=== PATIENT | female | born 2000 | race Caucasian/White ===

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

== ENCOUNTER → 2019-03-11 | Outpatient (CLI) | payer OTHER, SELFPAY ==
[2019-01-18 11:09] VITALS: BMI 18.5
[2019-03-11 12:56] LABS: hCG Titer Quant., Serum < 1 mIU/mL (1-3)
== END | disposition home or self-care (01) ==
PROVIDERS: Family Provider Family Medicine; PCP Family Medicine; Visit Provider Family Medicine
DX: N91.2 Amenorrhea, unspecified (principal)
CPT/HCPCS: 36415; 84702

== ENCOUNTER → 2020-03-29 13:27 | Outpatient (CLI) | payer OTHER, SELFPAY ==
[2019-11-05 09:19] VITALS: BMI 18.3
[2020-03-29 15:34] LABS: Amphetamine Urine VISTA NEGATIVE (<1000 ng/mL); Barbiturate Urine VISTA NEGATIVE (< 200 ng/mL); Benzodiazepine Urine VISTA NEGATIVE (< 200 ng/mL); Cocaine Urine VISTA NEGATIVE (< 300 ng/mL); Ecstacy Urine VISTA NEGATIVE (< 500 ng/mL); Methadone Urine VISTA NEGATIVE (< 300 ng/mL); PCP Urine VISTA NEGATIVE (< 25 ng/mL); THC Urine VISTA NEGATIVE (< 50 ng/mL); Vista UDS pH Range 6
== END ==
PROVIDERS: PCP Family Medicine; Visit Provider Family Medicine
DX: Z01.89 Encounter for other specified special examinations (principal)
CPT/HCPCS: 80307

== ENCOUNTER → 2020-06-03 | Outpatient (CLI) | payer OTHER, SELFPAY ==
[2020-06-03 10:43] VITALS: BMI 18.3
== END | disposition home or self-care (01) ==
PROVIDERS: PCP Family Medicine; Referring Provider Obstetrics & Gynecology; Visit Provider Obstetrics & Gynecology
DX: N89.8 Other specified noninflammatory disorders of vagina (principal)
CPT/HCPCS: 87070; 87205

== ENCOUNTER → 2020-11-19 08:42 | Outpatient (CLI) | payer OTHER, SELFPAY ==
[2020-07-05 10:02] VITALS: BMI 18.7
[2020-11-19 12:17] LABS: Absolute Lymphocyte Count 2.21 X10^3/uL (0.83-4.51); Absolute Neutrophil Count 3.6 X10^3/uL (2.0-7.7); Basophil# 0.05 X10^3/uL; Basophil% 0.8 % (0-1); Eosinophil# 0.13 X10^3/uL; Hemoglobin 13.4 g/dL (12.0-15.0); Lymphocyte # 2.21 X10^3/ul (4.0); Lymphocyte % 33.6 % (19-41); Mean Corp Hgb Conc 32.7 g/dL (32-36); Mean Corpuscular Hgb 31.2 pg (27.0-32.0); Mean Corpuscular Volume 95.6 fL (81-99); Mean Platelet Vol. 9.9 fl (6.2-12.0); Monocyte# 0.56 X10^3/uL; Monocyte% 8.5 % (0-10); NRBC Flagged by Analyzer 0 % (0-5); Neutrophil # 3.62 X10^3/uL (2.7-7.7); Neutrophil % 54.9 % (47-70); Platelet Count 218 K/mm3 (150-450); RBC Distribution Width CV 11.8 % (11.6-14.6); RBC Distribution Width SD 40.7 fl (35.1-43.9); Red Blood Count 4.29 M/mm3 (4.2-5.4); White Blood Count 6.6 K/mm3 (4.4-11.0)
[2020-11-19 12:29] LABS: Vitamin D,25 Hydroxy 36.1 ng/mL
[2020-11-19 12:34] LABS: ALB/GLOB Ratio 1.2 RATIO (0.9-2.4); AST(SGOT) 13 U/L (15-37); Alanine Aminotransfer ALT/SGPT 21 U/L (13-56); Albumin, Serum 3.7 g/dL (3.2-5.0); Alkaline Phosphatase 42 U/L (45-117); Anion Gap 4 (5-15); BUN 8 mg/dL (7-18); BUN/Creat Ratio 10.7 RATIO (10-20); Calcium,Total 9.2 mg/dL (8.5-10.1); Chloride 109 mmol/L (98-107); Creatinine, Serum 0.75 mg/dL (0.55-1.02); EST Glomerular Filtration Rate 103 mL/min (>60); Est Glom Filt Rate - Afr Amer 125 mL/min (>60); Ferritin 35 ng/mL (8-252); Free T3 2.8 pg/mL (2.18-3.98); Globulin 3.1 g/dL (2.2-4.2); Glucose 72 mg/dL (74-106); Iron 145 ug/dL (50-170); Potassium 3.6 mmol/L (3.5-5.1); Protein, Total 6.8 g/dL (6.4-8.2); Sodium Level 140 mmol/L (136-145); T4 Free Direct 1.14 ng/dL (0.76-1.46); Thyroid Stim Hormone (TSH) 2.04 uIU/mL (0.358-3.74)
== END ==
PROVIDERS: PCP Family Medicine; Visit Provider Family Medicine
DX: R53.83 Other fatigue (principal); Z51.81 Encounter for therapeutic drug level monitoring; E55.9 Vitamin D deficiency, unspecified; D64.9 Anemia, unspecified
CPT/HCPCS: 36415; 80053; 82306; 82728; 83540; 84439; 84443; 84481; 85025

== ENCOUNTER → 2020-12-30 | Outpatient (CLI) | payer OTHER, SELFPAY ==
[2020-12-30 11:41] VITALS: BMI 19.5
[2021-01-03 06:06] LABS: Chlamydia By Nucleic Acid AMP Negative (Negative)
[2021-01-03 09:29] LABS: Gonococcus By Nucleic Acid AMP Negative (Negative)
[2021-01-04 16:48] LABS: HPV Reflexed? NOT INDICATED
== END | disposition home or self-care (01) ==
LOC: LABSPEC 16:28
PROVIDERS: PCP Family Medicine; Referring Provider Obstetrics & Gynecology; Visit Provider Obstetrics & Gynecology
DX: Z12.4 Encounter for screening for malignant neoplasm of cervix (principal)
CPT/HCPCS: 87491; 87591; 88175; G0145

== ENCOUNTER 2021-10-07 22:11 | Emergency (ER) | payer OTHER, SELFPAY ==
[2021-10-07 22:12] VITALS: BP 105/74; PULSE 66; RESP 14; TEMP 36.7; O2SAT 99; BMI 18.1
[2021-10-07] MEDS: Tetracaine 0.5% Ophthalmic Bottle 2 DRP RIGHT EYE (22:42)
[2021-10-07 22:43] VITALS: BP 105/74; PULSE 66; RESP 14; TEMP 36.7; O2SAT 99
--- NOTE | 2021-10-07 22:57 | EX.ED.VIS.EY ---
HPI History of Present Illness Chief Complaint: Occup Expose Informant: patient Onset/Context/Timing Location: Right Eye Onset: Today Narrative Narrative: Patient presents for evaluation after body fluid exposure. She was changing a Delgado catheter bag to a leg bag and states urine splashed into her right eye. She normally wears glasses but did not have them on at work tonight. 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 [facility] Medical History Depression with anxiety Home Medications cetirizine 10 mg tablet 10 mg PO DAILY 06/03/20 [History Last Taken Unknown] fluticasone propionate 50 mcg/actuation nasal spray,suspension 1 spray INTRANASAL DAILY 07/05/20 [History Last Taken Unknown] etonogestrel 0.12 mg-ethinyl estradiol 0.015 mg/24 hr vaginal ring 1 vag ring VAGINAL ONCE 28 Days #1 ea 01/03/21 [Rx Last Taken Unknown] citalopram 40 mg tablet See Rx Instructions .ROUTE .COMPLEX #30 tab 10/06/21 [Rx Last Taken Unknown] Allergy/AdvReac Type Severity Reaction Status Date / Time No Known Allergies Allergy Verified 12/30/20 11:41 Family History Grandfather Heart disease Surgical History H/O oral surgery [place] teeth removed Social History Smoking Status: Never smoker alcohol intake: never substance use type: does not use caffeine: Yes what type of physical activity do you participate in: running and yoga frequency: daily seatbelt use: always do you feel safe at home: Yes additional social history: Student at Works at the [employer] at and [employer] in [place] ROS ROS ED Constitutional Constitutional ED: Denies chills or fever(s) Eyes Eyes: Denies blurry vision or change in vision ENT ENT ED: Denies sore throat Cardiovascular Cardiovascular: Denies chest pain Respiratory/Chest Respiratory/Chest: Denies dyspnea Gastrointestinal Gastrointestinal: Denies abdominal pain, nausea or vomiting Integumentary Denies rash Allergic/Immunologic Allergic/Immunologic ED: Denies urticaria EXAM Physical Exam Const Vital Signs: 10/07/21 22:12 10/07/21 22:43 Temperature 98.1 F 98.1 F Temperature Source Temporal Temporal Pulse Rate 66 66 Respiratory Rate 14 14 Blood Pressure 105/74 105/74 Blood Pressure Mean 84 84 Pulse Ox 99 99 Oxygen Delivery Method Room Air Room Air Positive well nourished and well developed General Appearance ED: well developed HEENT atraumatic Eyes General Eye ED: Yes normal appearance of both eyes Visual Acuity: acuity normal Periorbital: periorbital findings normal Eyelid: eyelids normal Sclera: sclera normal Pupil: PERRL Neck supple Resp normal respiratory effort and clear to auscultation bilaterally Cardio regular rate and regular rhythm GI non-tender Palpation: soft Neuro oriented x3 Sensorium / Orientation: alert Psych Mood & Affect: Negative for depressed Skin Lesions: no lesions Rashes: no rashes MDM MDM Treatment and Re-Evaluation Comments:: Tetracaine applied to right eye and irrigated with Eye-Stream eyewash. Patient to follow-up with [facility]. Discharge Plan Triage Chief Complaint: Occup Expose ED Provider: Gayathri Tolentino Dx/Rx/DC Orders Clinical Impression: Exposure to body fluid Instructions: ED Body Fluid Exposure Not ... Prescriptions: No Action etonogestrel-ethinyl estradiol [NuvaRing] 0.12-0.015 mg/24 hr ring 1 vag ring VAGINAL ONCE 28 Days Qty: 1 RF: 12 cetirizine [Zyrtec] 10 mg tablet 10 mg PO DAILY RF: 0 fluticasone propionate [Flonase Allergy Relief] 50 mcg/actuation spray,suspension 1 spray INTRANASAL DAILY RF: 0 citalopram 40 mg tablet See Rx Instructions .ROUTE .COMPLEX Qty: 30 RF: 12 Stand Alone Forms: Work Status Form Primary Care Provider: Yoli Cui [facility] [GROUP OF PHYSICIANS] - 3-5 Days Yoli Cui [Primary Care Provider] - As Needed Disposition Disposition: Home, Self Care Discharge Date/Time: 10/07/21 23:10
== END 2021-10-07 23:10 | disposition home or self-care (01) ==
PROVIDERS: Emergency Provider Emergency Medicine; PCP Family Medicine; Visit Provider Emergency Medicine
DX: Z77.21 Contact with and (suspected) exposure to potentially hazardous body fluids (principal)
CPT/HCPCS: 99282

== ENCOUNTER 2021-11-23 06:39 | Emergency (ER) | payer OTHER, SELFPAY ==
[2021-11-23 06:40] VITALS: BP 93/67; PULSE 77; RESP 16; TEMP 37.1; O2SAT 99; BMI 19.5
--- NOTE | 2021-11-23 07:40 | EDS_ITS ---
HPI History of Present Illness Chief Complaint: General Illness Informant: patient Narrative Narrative: Patient is 21-year-old female reports history of anxiety and chronic migraines presenting with headache and body aches. Patient states she went to bed and had some nausea but when she woke up she had a lot of pressure in her head. She started moving around this morning and had pain going down to her fingertips as well as her toes. She states her hips and biceps hurt. She has some associated nausea but no vomiting. States her stools have been more frequent and soft but denies diarrhea. No report of any fever or rash. No report of any cough or chest pain. Does have some associated photophobia. States this headache feels consistent with her chronic migraines. Did take ibuprofen 600 mg around 6 AM this morning with no relief. Works as an [employer] still has been exposed to multiple sick contacts at work. Had Covid in September 2021 and states she is had some chronic congestion since. No other complaints at this time. [facility] Medical History (Updated 11/23/21 @ 09:[address] Kesha Robles DO) Depression with anxiety Home Medications etonogestrel 0.12 mg-ethinyl estradiol 0.015 mg/24 hr vaginal ring 1 vag ring VAGINAL ONCE 28 Days #1 ea 01/03/21 [Rx Last Taken Unknown] citalopram 40 mg DAILY 11/23/21 [History Last Taken Unknown] cyclobenzaprine 10 mg PO TID PRN #14 tab 11/23/21 [Rx Last Taken Unknown] Allergy/AdvReac Type Severity Reaction Status Date / Time No Known Allergies Allergy Verified 11/23/21 06:50 Family History Grandfather Heart disease Surgical History H/O oral surgery [place] teeth removed Social History Smoking Status: Never smoker alcohol intake: never substance use type: does not use caffeine: Yes what type of physical activity do you participate in: running and yoga frequency: daily seatbelt use: always do you feel safe at home: Yes additional social history: Student at Works at the [employer] at [employer] in [place] ROS ROS ED Constitutional Constitutional ED: Denies chills, fever(s) or sweats Eyes Eyes: Reports other Details: Photophobia ; Denies change in vision ENT ENT ED: Reports other Details: Chronic nasal congestion ; Denies ear pain, rhinorrhea or sore throat Cardiovascular Cardiovascular: Denies chest pain Respiratory/Chest Respiratory/Chest: Denies cough or dyspnea Gastrointestinal Gastrointestinal: Reports nausea; Denies abdominal pain, diarrhea or vomiting Genitourinary Genitourinary ED: Denies dysuria or hematuria Musculoskeletal Musculoskeletal: Reports arthralgias, back pain and myalgias; Denies neck pain Integumentary Denies rash Neurologic Neurologic: Reports headache(s); Denies paresthesias or weakness Psychiatric Psychiatric: Denies anxiety or depression EXAM Physical Exam Const Vital Signs: 11/23/21 06:40 11/23/21 06:47 11/23/21 08:39 Temperature 98.7 F Temperature Source Temporal Pulse Rate 77 Respiratory Rate 16 16 Respiratory Effort Non-Labored Respiratory Pattern Normal Blood Pressure 93/67 Blood Pressure Mean 75 Pulse Ox 99 Oxygen Delivery Method Room Air Positive well nourished and well developed General Appearance ED: well developed and NAD HEENT Reports TM's clear and moist mucous membranes Negative for tenderness Tympanic Membrane ED: Yes TM's clear Eyes PERRL and EOMs intact bilaterally Neck no lymphadenopathy and supple Neck Narrative: No meningeal signs Chest Wall inspection of chest normal Resp normal respiratory effort and clear to auscultation bilaterally Cardio regular rate, regular rhythm and no murmurs GI normal to inspection, nondistended, normoactive bowel sounds and non-tender Palpation: soft Back/Spine no CVA tenderness Back/Spine Narrative: Mild lower paraspinal cervical tenderness palpation as well as bilateral trapezius tenderness palpation Cervical Spine: Negative for cervical spine tenderness Extremity normal to inspection Extremity Narrative: Normal strength and tone of all extremities. 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 General Extremety ED: Negative for tenderness Neuro oriented x3 Sensorium / Orientation: alert Motor Exam: Negative for general weakness Psych mental status grossly normal Skin no rashes or lesions noted and no wounds MDM MDM MDM Narrative Medical decision making narrative: Evaluate for headache and myalgias. She has a history of migraine headaches. She is a normal neurologic exam. Do not think a CT is indicated at this time. She does not have a fever, nuchal rigidity or other concerns for meningitis. Her pain seems to be more muscle skeletal. I did check a CPK to make sure she is not in rhabdomyolysis. This was normal. Lab work largely unremarkable. She is given migraine cocktail including saline, Compazine and Benadryl. She is given Tylenol as she took 600 mg of ibuprofen just prior to arrival. On repeat evaluation she feels much better. I did check influenza swab which was negative. Patient we discharged home with a prescription for Flexeril. Is counseled on return precautions. Patient is discharged home in improved and stable condition. Lab Data Attestation: I reviewed the patient's lab results. Labs: Laboratory Results - last 24 hr 11/23/21 11/23/21 11/23/21 06:50 06:50 07:51 WBC 4.8 RBC 4.58 Hgb 14.7 Hct 40.8 MCV 89.1 MCH 32.1 H MCHC 36.0 RDW Std Deviation 35.9 RDW Coeff of Yamile 11.2 L Plt Count 184 MPV 10.7 Immature Gran % (Auto) 0.200 Neut % (Auto) 38.8 L Lymph % (Auto) 50.4 H [place] % (Auto) 7.6 Eos % (Auto) 1.7 Baso % (Auto) 1.3 H Absolute Neuts (auto) 1.9 L Absolute Lymphs (auto) 2.40 Nucleated RBC % 0 Sodium 140 Potassium 3.8 Chloride 108 H Carbon Dioxide 26.0 Anion Gap 6 BUN 12 Creatinine 0.80 Estim Creat Clear Calc 84.11 Est GFR (MDRD) Af Amer 115 Est GFR (MDRD) Non-Af 95 BUN/Creatinine Ratio 15.0 Glucose 99 Calcium 9.2 Total Creatine Kinase 109 Urine Color [place] Urine Clarity Sl. Cloudy Urine pH 6.0 Ur Specific [place] 1.020 Urine Protein 15 H Urine Glucose (UA) Normal Urine Ketones Negative Urine Occult Blood Negative Urine Nitrite Negative Urine Bilirubin Negative Urine Urobilinogen Normal Ur Leukocyte Esterase 25 H Urine RBC 0-5 SEEN Urine WBC 0-5 SEEN Ur Squamous Epith Cells 0-5 SEEN Urine Bacteria 1+ Urine Mucus RARE Discharge Plan Triage Chief Complaint: General Illness ED Provider: Kesha Robles Dx/Rx/DC Orders Clinical Impression: Headache, Myalgia Instructions: ED Headache, Tension, ED Pain, Acute, Uncertain Cause Prescriptions: New cyclobenzaprine 10 mg tablet 10 mg PO TID PRN (Reason: muscle spasm) Qty: 14 RF: 0 No Action etonogestrel-ethinyl estradiol [NuvaRing] 0.12-0.015 mg/24 hr ring 1 vag ring VAGINAL ONCE 28 Days Qty: 1 RF: 12 citalopram 40 mg tablet 40 mg DAILY RF: 0 Primary Care Provider: Yoli Cui Referrals: Yoli Cui [Primary Care Provider] - Disposition Disposition: Home, Self Care
[2021-11-23 07:43] LABS: Absolute Neutrophil Count 1.9 X10^3/uL (2.0-7.7); Basophil# 0.06 X10^3/uL; Basophil% 1.3 % (0-1); Eosinophil# 0.08 X10^3/uL; Eosinophils% 1.7 % (0-5); Hematocrit 40.8 % (37-47); Hemoglobin 14.7 g/dL (12.0-15.0); Lymphocyte % 50.4 % (19-41); Mean Corpuscular Hgb 32.1 pg (27.0-32.0); Mean Corpuscular Volume 89.1 fL (81-99); Mean Platelet Vol. 10.7 fl (6.2-12.0); Monocyte# 0.36 X10^3/uL; Monocyte% 7.6 % (0-10); NRBC Flagged by Analyzer 0 % (0-5); Neutrophil # 1.85 X10^3/uL (2.7-7.7); Neutrophil % 38.8 % (47-70); Platelet Count 184 K/mm3 (150-450); RBC Distribution Width CV 11.2 % (11.6-14.6); RBC Distribution Width SD 35.9 fl (35.1-43.9); Red Blood Count 4.58 M/mm3 (4.2-5.4); White Blood Count 4.8 K/mm3 (4.4-11.0)
[2021-11-23] MEDS: Acetaminophen 325 MG Tablet 650 MG PO (07:48)
[2021-11-23] MEDS: proCHLORPERazine 10 MG/2 ML Vial IV (07:48)
[2021-11-23] MEDS: DiphenhydrAMINE 50 MG/ML Syringe 25 MG IV (07:48)
[2021-11-23] MEDS: 0.9% Normal Saline 1,000 ML 1000 ML IV (07:49)
[2021-11-23 07:55] LABS: Anion Gap 6 (5-15); BUN 12 mg/dL (7-18); CPK Total, Creatine Kinase 109 U/L (26-192); Calcium,Total 9.2 mg/dL (8.5-10.1); Chloride 108 mmol/L (98-107); EST Glomerular Filtration Rate 95 mL/min (>60); Est Glom Filt Rate - Afr Amer 115 mL/min (>60); Estimated Creatinine Clearance 84.11 ml/min; Glucose 99 mg/dL (74-106); Potassium 3.8 mmol/L (3.5-5.1); Sodium Level 140 mmol/L (136-145)
[2021-11-23 07:59] LABS: Color, Urine Amber (Yellow); Glucose, Dipstick Normal (Normal); Ketone-Dipstick Negative (Negative); Leukocyte Esterase-Dipstick 25 /ul (Negative); Nitrite-Dipstick Negative (Negative); Occult Blood-Urine Negative /ul (Negative); Protein-Dipstick 15 mg/dl (Negative); Urine Bilirubin Dipstick Negative (Negative); Urine Clarity Sl. Cloudy (Clear); Urine Urobilinogen Normal (Normal)
[2021-11-23 08:23] LABS: Bacteria 1+ /hpf (None Seen); Mucous, Urine RARE /hpf (<or=2+); Red Blood Cells-Urine 0-5 SEEN /hpf (0-5); Squamous Epithelial Cells - UA 0-5 SEEN /hpf (5-10); White Blood Cells 0-5 SEEN /hpf (0-5)
[2021-11-23 08:39] VITALS: RESP 16
[2021-11-23 09:19] VITALS: BP 96/64; PULSE 78; RESP 16; O2SAT 96
[2021-11-23 14:21] LABS: Internal QC Validated? YES +Cl - CLEAR BKGD; Pregnancy, Urine Negative Negative
== END 2021-11-23 09:21 | disposition home or self-care (01) ==
PROVIDERS: Emergency Provider Emergency Medicine; PCP Family Medicine; Visit Provider Emergency Medicine
DX: G43.909 Migraine, unspecified, not intractable, without status migrainosus (principal); M79.10 Myalgia, unspecified site; F41.8 Other specified anxiety disorders; Z79.899 Other long term (current) drug therapy
CPT/HCPCS: 80048; 81001; 81025; 82550; 85025; 87804; 96361; 96374; 96375; 99283; J7030

== ENCOUNTER → 2022-05-11 | Outpatient (CLI) | payer OTHER, SELFPAY ==
[2022-05-12 22:06] LABS: Chlamydia By Nucleic Acid AMP Negative (Negative)
[2022-05-13 07:46] LABS: Gonococcus By Nucleic Acid AMP Negative (Negative)
== END | disposition home or self-care (01) ==
PROVIDERS: PCP Family Medicine; Visit Provider Obstetrics & Gynecology
DX: Z11.3 Encounter for screening for infections with a predominantly sexual mode of transmission (principal)
CPT/HCPCS: 87491; 87591

== ENCOUNTER 2022-09-17 06:36 | Emergency (ER) | payer OTHER, SELFPAY ==
[2022-09-17 06:37] VITALS: BP 133/84; PULSE 98; RESP 16; TEMP 36.6; O2SAT 98; BMI 18.1
--- NOTE | 2022-09-17 07:09 | EDS_ITS ---
HPI History of Present Illness Chief Complaint: General Illness Detail of Chief Complaint: Vomiting Informant: patient Narrative Narrative: Patient presents the emergency department complaint of vomiting that started last evening. Patient states that she started feeling nauseated before coming to work but she ate dinner and she felt little bit better. 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 Patient states she was having projectile vomiting and has thrown up about 5 times. Patient has had 2 loose stools. She denies sick contacts. She denies recent antibiotics. She complains of some just minimal mid back pain and she thinks it is from projectile vomiting. She denies urinary symptoms. Her last menstrual period was the beginning of August. Patient has not missed a menstrual period. Patient denies abdominal pain. She denies fever or cough or sore throat. [facility] Medical History (Updated 09/17/22 @ 09:[address] Shania Diaz, ) Depression with anxiety Migraines Home Medications citalopram 40 mg tablet 40 mg DAILY 11/23/21 [History Last Taken Unknown] cyclobenzaprine 10 mg tablet 10 mg PO TID PRN muscle spasm #14 tabs 11/23/21 [Rx Last Taken Unknown] fluticasone propionate 50 mcg/actuation nasal spray,suspension (Flonase Allergy Relief) 2 spray intranasal DAILY PRN 05/10/22 [History Last Taken Unknown] fremanezumab-vfrm 225 mg/1.5 mL subcutaneous auto-injector (Ajovy) 225 mg subcut QMONTH 05/10/22 [History Last Taken Unknown] spironolactone 100 mg tablet 100 mg PO DAILY 05/10/22 [History Last Taken Unknown] ubrogepant 50 mg tablet (Ubrelvy) 50 mg PO ONCE 05/10/22 [History Last Taken Unknown] tranexamic acid 650 mg tablet 1,300 mg PO TID 5 days #30 tabs 05/11/22 [Rx Last Taken Unknown] promethazine 25 mg tablet 25 mg PO Q6H PRN nausea and vomiting #10 tabs 09/17/22 [Rx Last Taken Unknown] Allergy/AdvReac Type Severity Reaction Status Date / Time lidocaine Allergy Swelling Verified 09/17/22 06:42 Family History Grandfather Heart disease Surgical History H/O oral surgery [place] teeth removed Social History Smoking Status: Never smoker alcohol intake: never substance use type: does not use caffeine: Yes what type of physical activity do you participate in: running and yoga frequency: daily seatbelt use: always do you feel safe at home: Yes additional social history: 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 [employer] in [place] ROS ROS ED Review of Systems ROS Unobtainable: other Constitutional Constitutional ED: Reports lethargy; Denies chills, fever(s), sweats or weight loss Eyes Eyes: Denies blurry vision, change in vision or diplopia ENT ENT ED: Denies rhinorrhea or sore throat Cardiovascular Cardiovascular: Denies chest pain, orthopnea or racing heartbeat Respiratory/Chest Respiratory/Chest: Denies cough, dyspnea, dyspnea on exertion, orthopnea or sputum Gastrointestinal Gastrointestinal: Reports nausea and vomiting; Denies abdominal pain or diarrhea Genitourinary Genitourinary ED: Denies dysuria, hematuria or urinary frequency Musculoskeletal Musculoskeletal: Denies arthralgias, back pain, myalgias or neck pain Integumentary Denies abscess, Abrasions or rash Neurologic Neurologic: Denies headache(s) or weakness Psychiatric Psychiatric: Denies anxiety, depression or suicidal thoughts Endocrine Endocrinology: Denies polydipsia, polyphagia or polyuria Hematologic/Lymphatic Hematologic/Lymphatic: Denies easy bleeding, easy bruising or lymphadenopathy Allergic/Immunologic Allergic/Immunologic ED: Denies mouth swelling, tongue swelling or urticaria EXAM Physical Exam Const Vital Signs: 09/17/22 06:37 09/17/22 06:45 Temperature 97.9 F Temperature Source Oral Pulse Rate 98 Respiratory Rate 16 Respiratory Effort Normal Blood Pressure 133/84 H Blood Pressure Mean 100 Pulse Ox 98 Oxygen Delivery Method Room Air Positive well nourished and well developed General Appearance ED: well developed and NAD HEENT Reports TM's clear and moist mucous membranes normocephalic and atraumatic; Negative for trauma or tenderness Tympanic Membrane ED: Yes TM's clear Eyes PERRL and EOMs intact bilaterally General Eye ED: Negative for pale conjunctiva or scleral icterus Neck no lymphadenopathy, supple and no JVD General: Negative for tenderness Chest Wall inspection of chest normal and palpation of chest normal Chest: Negative for tenderness Resp normal respiratory effort and clear to auscultation bilaterally Effort and Inspection: Negative for respiratory distress or pain with movement Auscultation: Negative for rhonchi, wheezes or diminished lung sounds Cardio regular rate, regular rhythm, S1 normal heart sound, S2 normal heart sound and no murmurs Peripheral Pulses: pulses 2+ throughout GI normal to inspection, nondistended, normoactive bowel sounds, soft to palpation, non-tender, non-distended and no masses Back/Spine no CVA tenderness and no thoracic nor lumbar tenderness Extremity normal to inspection General Extremety ED: Negative for edema General Extremity: Negative for edema Neuro oriented x3, CN's II-XII intact bilaterally, no sensory deficits noted and gait normal Sensorium / Orientation: awake, alert, oriented to person, oriented to place and oriented to time Motor Exam: strength 5/5 throughout and strength abnormal Psych mental status grossly normal Skin no rashes or lesions noted and no wounds MDM MDM MDM Narrative Medical decision making narrative: IV line established. Patient was given Zofran 4 mg IV. Patient was able to tolerate p.o.'s after Zofran. She was given a liter mostly of fluid bolus. Lab work-up was normal. hCG was negative. Urinalysis was unremarkable. This point suspect likely a viral gastroenteritis. She will be given a prescription for Phenergan. Patient advised to push fluids. Patient to follow-up with primary care physician in 3 to 5 days. Lab Data Attestation: I reviewed the patient's lab results. Labs: Laboratory Results - last 24 hr 09/17/22 09/17/22 09/17/22 07:19 07:19 07:19 WBC 4.8 RBC 4.50 Hgb 14.4 Hct 41.0 MCV 91.1 MCH 32.0 MCHC 35.1 RDW Std Deviation 36.8 RDW Coeff of Yamile 11.0 L Plt Count 133 L MPV 10.2 Immature Gran % (Auto) 0.200 Neut % (Auto) 76.1 H Lymph % (Auto) 13.4 L [place] % (Auto) 8.9 Eos % (Auto) 1.0 Baso % (Auto) 0.4 Absolute Neuts (auto) 3.7 Absolute Lymphs (auto) 0.65 L Nucleated RBC % 0 Sodium 142 Potassium 3.6 Chloride 108 H Carbon Dioxide 28.0 Anion Gap 6 BUN 14 Creatinine 0.68 Estim Creat Clear Calc 91.22 Est GFR (MDRD) Af Amer 136 Est GFR (MDRD) Non-Af 113 BUN/Creatinine Ratio 20.4 H Glucose 85 Calcium 10.0 Serum , Qual NEGATIVE Urine Color Urine Clarity Urine pH Ur Specific [place] Urine Protein Urine Glucose (UA) Urine Ketones Urine Occult Blood Urine Nitrite Urine Bilirubin Urine Urobilinogen Ur Leukocyte Esterase Urine RBC Urine WBC Ur Squamous Epith Cells Urine Bacteria Urine Mucus 09/17/22 08:25 WBC RBC Hgb Hct MCV MCH MCHC RDW Std Deviation RDW Coeff of Yamile Plt Count MPV Immature Gran % (Auto) Neut % (Auto) Lymph % (Auto) [place] % (Auto) Eos % (Auto) Baso % (Auto) Absolute Neuts (auto) Absolute Lymphs (auto) Nucleated RBC % Sodium Potassium Chloride Carbon Dioxide Anion Gap BUN Creatinine Estim Creat Clear Calc Est GFR (MDRD) Af Amer Est GFR (MDRD) Non-Af BUN/Creatinine Ratio Glucose Calcium Serum , Qual Urine Color Yellow Urine Clarity Clear Urine pH 6.0 Ur Specific [place] 1.015 Urine Protein 30 H Urine Glucose (UA) Normal Urine Ketones 50 H Urine Occult Blood Negative Urine Nitrite Negative Urine Bilirubin 1 H Urine Urobilinogen Normal Ur Leukocyte Esterase 25 H Urine RBC 0 SEEN Urine WBC 0-5 SEEN Ur Squamous Epith Cells 5-10 SEEN Urine Bacteria 2+ Urine Mucus 1+ Discharge Plan Triage Chief Complaint: General Illness Other Complaint: Back ED Provider: Shania Diaz Dx/Rx/DC Orders Clinical Impression: Viral gastroenteritis Instructions: Viral Gastroenteritis Prescriptions: New promethazine 25 mg tablet 25 mg PO Q6H PRN (Reason: nausea and vomiting) Qty: 10 0RF No Action spironolactone 100 mg tablet 100 mg PO DAILY fluticasone propionate [Flonase Allergy Relief] 50 mcg/actuation spray,suspension 2 spray intranasal DAILY PRN Rx Instructions: administer into each nostril Ubrelvy 50 mg tablet 50 mg PO ONCE Rx Instructions: as a single dose; may repeat once in >=2 hours after first dose if needed Ajovy Autoinjector 225 mg/1.5 mL auto-injector 225 mg subcut QMONTH tranexamic acid 650 mg tablet 1,300 mg PO TID 5 Days Qty: 30 8RF Rx Instructions: take during first 5 days of menses citalopram 40 mg tablet 40 mg DAILY cyclobenzaprine 10 mg tablet 10 mg PO TID PRN (Reason: muscle spasm) Qty: 14 0RF Primary Care Provider: Yoli Cui Referrals: Yoli Cui [Primary Care Provider] - Disposition Disposition: Home, Self Care
[2022-09-17] MEDS: Ondansetron 4 MG/2 ML Vial IV (07:26)
[2022-09-17] MEDS: 0.9% Normal Saline 1,000 ML 1000 ML IV (07:26)
[2022-09-17 07:40] LABS: Absolute Lymphocyte Count 0.65 X10^3/uL (0.83-4.51); Absolute Neutrophil Count 3.7 X10^3/uL (2.0-7.7); Basophil# 0.02 X10^3/uL; Basophil% 0.4 % (0-1); Eosinophil# 0.05 X10^3/uL; Hemoglobin 14.4 g/dL (12.0-15.0); Lymphocyte # 0.65 X10^3/ul (0.83-4.51); Lymphocyte % 13.4 % (19-41); Mean Corp Hgb Conc 35.1 g/dL (32-36); Mean Corpuscular Volume 91.1 fL (81-99); Mean Platelet Vol. 10.2 fl (6.2-12.0); Monocyte# 0.43 X10^3/uL; Monocyte% 8.9 % (0-10); NRBC Flagged by Analyzer 0 % (0-5); Neutrophil # 3.68 X10^3/uL (2.7-7.7); Neutrophil % 76.1 % (47-70); Platelet Count 133 K/mm3 (150-450); RBC Distribution Width SD 36.8 fl (35.1-43.9); White Blood Count 4.8 K/mm3 (4.4-11.0)
[2022-09-17 07:49] LABS: Internal QC Validated? YES +Cl - CLEAR BKGD; Pregnancy, Serum, hCG Quali. NEGATIVE Negative
[2022-09-17 07:53] LABS: Anion Gap 6 (5-15); BUN 14 mg/dL (7-18); BUN/Creat Ratio 20.4 RATIO (10-20); Chloride 108 mmol/L (98-107); Creatinine, Serum 0.68 mg/dL (0.55-1.02); EST Glomerular Filtration Rate 113 mL/min (>60); Est Glom Filt Rate - Afr Amer 136 mL/min (>60); Estimated Creatinine Clearance 91.22 ml/min; Glucose 85 mg/dL (74-106); Potassium 3.6 mmol/L (3.5-5.1); Sodium Level 142 mmol/L (136-145)
--- NOTE | 2022-09-17 08:22 | ED.RN ---
pt states feeling better just tired. sipping gingerale and keeping it down.
[2022-09-17 08:29] LABS: Red Blood Cells-Urine 0 SEEN /hpf (0-5)
[2022-09-17 09:19] LABS: Color, Urine Yellow (Yellow); Glucose, Dipstick Normal (Normal); Ketone-Dipstick 50 mg/dl (Negative); Leukocyte Esterase-Dipstick 25 /ul (Negative); Nitrite-Dipstick Negative (Negative); Occult Blood-Urine Negative /ul (Negative); Protein-Dipstick 30 mg/dl (Negative); Specific Gravity, Urine 1.015 (1.002-1.030); Urine Clarity Clear (Clear); Urine Urobilinogen Normal (Normal)
[2022-09-17 09:30] LABS: Urine Bilirubin Dipstick 1 mg/dL (Negative)
[2022-09-17 09:33] LABS: Squamous Epithelial Cells - UA 5-10 SEEN /hpf (5-10); White Blood Cells 0-5 SEEN /hpf (0-5)
[2022-09-17 09:34] LABS: Bacteria 2+ /hpf (None Seen); Mucous, Urine 1+ /hpf (<or=2+)
[2022-09-17 09:49] VITALS: BP 116/67; PULSE 87; RESP 16; O2SAT 99
== END 2022-09-17 09:50 | disposition home or self-care (01) ==
PROVIDERS: Emergency Provider Emergency Medicine; PCP Family Medicine; Visit Provider Emergency Medicine
DX: A08.4 Viral intestinal infection, unspecified (principal); F41.9 Anxiety disorder, unspecified; F32.A Depression, unspecified; Z79.899 Other long term (current) drug therapy
CPT/HCPCS: 80048; 81001; 84703; 85025; 96361; 96374; 99283; J7030; A4216; J2405

== ENCOUNTER → 2022-10-27 | Outpatient (CLI) | payer OTHER, SELFPAY ==
--- NOTE | 2022-10-27 13:50 | ECHOD_ITS ---
Reason For Study: PALPITATIONS Procedure This was a 2D Doppler, Color Flow transthoracic echocardiogram. Exam performed in department. Left Ventricle Normal LV size. Left ventricular systolic function is normal. The estimated ejection fraction is 60 %. No regional wall motion abnormalities noted. Right Ventricle Normal RV size. Normal systolic function. Atria Normal left atrium. Mitral Valve Normal mitral valve. Tricuspid Valve Normal tricuspid valve. Mild (1+) tricuspid valve insufficiency. Pulmonary artery systolic pressure is 27 mmHg. Aortic Valve Normal aortic valve. Trisinus/trileaflet aortic valve. Pulmonic Valve Normal pulmonic valve. Great Vessels Normal aortic root. Pericardium/Pleural No pericardial effusion. MMode/2D Measurements & Calculations LVIDd: 4.5 cm IVSd: 0.47 cm Ao root diam: 2.9 cm LVIDs: 3.1 cm LVPWd: 0.59 cm RVDd: 3.1 cm FS: 31.6 % LAV(MOD-bp): 22.4 ml LVAd ap4: 25.9 cm2 SV(MOD-sp4): 46.0 ml LAV(MOD-bp) Indexed: 15.8 ml/m2 LVLd ap4: 8.0 cm LAV(MOD-sp2): 22.5 ml EDV(MOD-sp4): 73.1 ml LAV(MOD-sp4): 19.9 ml EDV(sp4-el): 71.0 ml LVAs ap4: 14.2 cm2 LVLs ap4: 6.5 cm ESV(MOD-sp4): 27.1 ml ESV(sp4-el): 26.6 ml EF(MOD-sp4): 62.9 % EF(sp4-el): 62.6 % SV(sp4-el): 44.5 ml LA A4 area: 11.3 cm2 LA dimension(2D): 2.5 cm RA A4 area: 11.9 cm2 Time Measurements MV dec time: 0.16 sec Doppler Measurements & Calculations MV E max madi: 96.2 cm/sec Lat Peak E' Madi: 21.6 cm/sec Med Peak E' Madi: 21.3 cm/sec MV A max madi: 34.6 cm/sec E/E' lat: 4.5 E/E' med: 4.5 MV E/A: 2.8 Ao V2 max: 92.5 cm/sec LV V1 max: 74.6 cm/sec PA V2 max: 69.0 cm/sec Ao max P.4 mmHg LV V1 max P.2 mmHg TR max madi: 242.9 cm/sec TR max P.6 mmHg ECHO/Echo Complete Interpretation Summary Normal LV size. Left ventricular systolic function is normal. The estimated ejection fraction is 60 %. Pulmonary artery systolic pressure is 27 mmHg. Structurally normal valves. Ordering Physician: Yoli Cui Referring Physician: YOLI CUI Performed By: Renuka Villa RDCS
== END | disposition home or self-care (01) ==
LOC: CVS 13:49
PROVIDERS: PCP Family Medicine; Visit Provider Family Medicine
DX: R00.2 Palpitations (principal)
CPT/HCPCS: 93306

== ENCOUNTER → 2023-06-01 | Outpatient (CLI) | payer OTHER, SELFPAY ==
[2023-06-01 09:58] LABS: T4 Free Direct 1.08 ng/dL (0.76-1.46); Thyroid Stim Hormone (TSH) 4.95 uIU/mL (0.358-3.74)
[2023-06-02 05:07] LABS: Thyroid Peroxidase AB < 9 IU/mL (0-34)
== END | disposition home or self-care (01) ==
LOC: LAB 07:33
PROVIDERS: PCP Family Medicine; Referring Provider Obstetrics & Gynecology; Visit Provider Obstetrics & Gynecology
DX: F32.81 Premenstrual dysphoric disorder (principal); F41.8 Other specified anxiety disorders; N92.0 Excessive and frequent menstruation with regular cycle
CPT/HCPCS: 36415; 84439; 84443; 84481; 86376

== ENCOUNTER → 2023-09-18 | Outpatient (CLI) | payer OTHER, SELFPAY ==
--- OUTSIDE RECORDS SUMMARY | 2023-09-18 08:00 | XMS RPT_ITS | CCD ---
Author Name Unknown Address [address] [place] [address] Organization [facility] Care Team Providers Care Pharmacy Retail Support Specialist Name Role Phone BART PADRON Unavailable Unavailable BART PADRON Unavailable Unavailable BART PADRON Unavailable Unavailable SAUL ORO MD Unavailable Unavailable SAUL ORO MD Unavailable Unavailable SAUL ORO MD Unavailable Unavailable MALYS, TOMASZ D.O Unavailable Unavailable MALYS, TOMASZ D.O Unavailable Unavailable PROVIDER, UNKNOWN Unavailable Unavailable NO, PHYSICIAN Primary Care Unavailable BUNNY MCGRATH Attending UnavailSANDI Phan Referring Unavailable SANDI HANSEN Admitting Unavailable NO, PHYSICIAN Primary Care Unavailable Pcp, No Primary Care Provider Unavailabl e Allergies Allergy Classification Reported Allergen(s) Allergy Type Date of Onset Reaction(s) Facility (1 source) doxycycline Drug Allergy [facility] Repository Problems Problem Classification Problem Date Documented Da te Episodic/Chronic Other circulatory disease (3 sources) Hypotension, unspecified; Translations: [Hypotension, unspecified] Onset: 04-16-2017 Episodic Results Test Name Value Interpretation Reference Range Facil ity Encounters Encounter Date Encounter Type Care Provider Facility Start: 04-19-2022 End: 04-19-2022 Subsequent hospital visit by physician Mri [facility] (I-Stat/1.5t) Work Phone: Radiology Start: 05-30-2021 End: 05-30-2021 ambulatory SANDI HANSEN [facility] Start: 05-29-2021 End: 05-29-2021 ambulatory PHYSICIAN EULALIO [facility] Start: 05-30-2017 End: 05-30-2017 Emergency department patient visit SAUL GONZALEZ [facility] Start: 04-16-2017 End: 04-16-2017 Ambulatory BART PADRON [facility] Procedures Date Procedure Procedure Detail Performing Clinician Start: 04-19-2022 Mri brain brain stem w/o w/contrast material [facility] Provider Plan of Treatment Date Care Activity Detail Author Start: 05-18-2022 Influenza vaccination INFLUENZA (#1) [facility] Start: 2020 PAP TESTING PAP TESTING [facility] Start: 2017 CHLAMYDIA SCREENING (18-24) CHLAMYDIA SCREENING (18-24) [facility] Start: 2017 GC (GONORRHEA) SCREE JR (18-24) GC (GONORRHEA) SCREENING (18-24) [facility] Start: 2017 HEPATITIS C SCREENING HEPATITIS C SC REENING [facility] Start: 2017 HIV SCREENING HIV SCREENING [facility] Start: 2013 PEDS TO ADULT TRANSI TION ANNUAL ASSESSMENT PEDS TO ADULT TRANSITION ANNUAL ASSESSMENT [facility] Start: 2011 Adult depression scr eening assessment DEPRESSION SCREENING [facility] Start: 2011 PEDS TO ADULT TRANSI TION INITIAL DISCUSSION PEDS TO ADULT TRANSITION INITIAL DISCUSSION [facility] Start: 2010 HPV VACCINE (1 - 2-d ose series) HPV VACCINE (1 - 2-dose series) [facility] Start: 2010 Urine microalbumin profile DTAP,TDAP ,TD (6 - Tdap) [facility] Immunizations Immunization Date Immunization Notes Care Provider Juli koo 06-29-2009 influenza virus vaccine, live, attenuated, for intranasal use Mri (I-Stat/1.5t) Work Phone: [facility] Work Phone: 07-30-2007 influenza virus vaccine, unspecified formulation Mri (I-Stat/1.5t) Work Phone: [facility] Work Phone: 08-17-2006 influenza virus vaccine, unspecified formulation Mri (I-Stat/1.5t) Work Phone: [facility] 05-12-2004 diphtheria, tetanus toxoids and acellular pertussis vaccine Mri (I-Stat/1.5t) Work Phone: [facility] Work Phone: 05-12-2004 measles, mumps and rubella virus vaccine Mri (I-Stat/1.5t) Work Phone: [facility] Work Phone: 05-12-2004 poliovirus vaccine, inactivated Mri (I-Stat/1.5t) Work Phone: [facility] Work Phone: 07-31-2001 pneumococcal conjuga te vaccine, 7 valent Mri (I-Stat/1.5t) Work Phone: [facility] Work Phone: 07-31-2001 poliovirus vaccine, inactivated Mri (I-Stat/1.5t) Work Phone: [facility] Work Phone: 02-14-2001 haemophilus influenz ae type b vaccine, HbOC conjugate Mri (I-Stat/1.5t) Work Phone: [facility] Work Phone: 02-14-2001 pneumococcal conjuga te vaccine, 7 valent Mri (I-Stat/1.5t) Work Phone: [facility] Work Phone: 11-29-2000 diphtheria, tetanus toxoids and acellular pertussis vaccine Mri (I-Stat/1.5t) Work Phone: [facility] Work Phone: 11-27-2000 measles, mumps and rubella virus vaccine Mri (I-Stat/1.5t) Work Phone: [facility] Work Phone: 11-27-2000 varicella virus vaccine Mri (I-Stat/1.5t) Work Phone: [facility] Work Phone: 02-21-2000 diphtheria, tetanus toxoids and acellular pertussis vaccine Mri (I-Stat/1.5t) Work Phone: [facility] Work Phone: 02-21-2000 haemophilus influenz ae type b vaccine, HbOC conjugate Mri (I-Stat/1.5t) Work Phone: [facility] Work Phone: 1999 diphtheria, tetanus toxoids and acellular pertussis vaccine Mri (I-Stat/1.5t) Work Phone: [facility] Work Phone: 1999 haemophilus influenz ae type b vaccine, HbOC conjugate Mri (I-Stat/1.5t) Work Phone: [facility] Work Phone: 1999 hepatitis B vaccine, pediatric or pediatric/adolescent dosage Mri (I-Stat/1.5t) Work Phone: [facility] Work Phone: 1999 poliovirus vaccine, inactivated Mri (I-Stat/1.5t) Work Phone: [facility] Work Phone: 1999 diphtheria, tetanus toxoids and acellular pertussis vaccine Mri (I-Stat/1.5t) Work Phone: [facility] Work Phone: 1999 haemophilus influenz ae type b vaccine, HbOC conjugate Mri (I-Stat/1.5t) Work Phone: [facility] Work Phone: 1999 hepatitis B vaccine, pediatric or pediatric/adolescent dosage Mri (I-Stat/1.5t) Work Phone: [facility] Work Phone: 1999 poliovirus vaccine, inactivated Mri (I-Stat/1.5t) Work Phone: [facility] Work Phone: 1999 hepatitis B vaccine, pediatric or pediatric/adolescent dosage Mri (I-Stat/1.5t) Work Phone: [facility] Work Phone: Payers Date Payer Category Payer Private Health Insurance [facility] [id number] 2021-Present [phone] [address] [place] [address] Open Access [id number] 2017 Private Health Insurance [id number] 1999 Unknown [id number] 1999 Unknown [id number] Medicaid [id number] Social History Date Type Detail Facility Tobacco smoking stat [facility] Never smoked tobacco [facility] Work Phone: Start: 01-09-2014 Alcohol intake Not Asked [facility] Start: 1999 Sex Assigned At Not on file [facility] Progress note 04-19-2022 Note Date & Type Note Facility 04-19-2022 Note HNO ID: [id number] Author: NAHOMI Villa) Service: ? Author Type: Technologist Type: Progress Notes Filed: 04/19/2022 9:02 AM Note Text: Radiology Service Progress Note DATE OF SERVICE: April 19, 2022 TIME: 8:45 AM PATIENT IDENTITY VERIFICATION COMPLETED USING TWO (2) STANDARD IDENTIFIERS: Name and Date of confirmed by patient verbally. FALL SCREENING: Has the patient had 2 falls in the last year or 1 fall with injury or currently using an Ambulatory Assistive Device (Walker, Cane, Wheelchair, Crutches, etc.)? No PATIENT GENDER DATA: Female. status: : No status: NO. PATIENT RELEVANT IMPLANT DATA REVIEWED: Yes ALLERGIES: Reviewed and unchanged CONTRAST ALLERGY: NO. EXAM: MRI - CONTRAST TYPE: GROUP II PERIPHERAL IV DATA: Ambulatory: A peripheral IV was started in the Right antecubital site with a Angio cath: 22 gauge. RADIOLOGY DEPARTMENT: MR; Exam(s) Completed: Head: Routine Brain SIGNATURE: RT Daisy(Neha) PATIENT NAME: Kelly Arteaga DATE: April 19, 2022 TIME: 8:45 AM [facility] History of Present illness Narrative 04-19-2022 NAHOMI Villa) - 04/19/2022 8:40 AM EDT Note Date & Type Note Facility 04-19-2022 History of Presen t illness Narrative Radiology Service Progress Note DATE OF SERVICE: April 19, 2022 TIME: 8:45 AM PATIENT IDENTITY VERIFICATION COMPLETED USING TWO (2) STANDARD IDENTIFIERS: Name and Date of confirmed by patient verbally. FALL SCREENING: Has the patient had 2 falls in the last year or 1 fall with injury or currently using an Ambulatory Assistive Device (Walker, Cane, Wheelchair, Crutches, etc.)? No PATIENT GENDER DATA: Female. status: : No status: NO. PATIENT RELEVANT IMPLANT DATA REVIEWED: Yes ALLERGIES: Reviewed and unchanged CONTRAST ALLERGY: NO. EXAM: MRI - CONTRAST TYPE: GROUP II PERIPHERAL IV DATA: Ambulatory: A peripheral IV was started in the Right antecubital site with a Angio cath: 22 gauge. RADIOLOGY DEPARTMENT: MR; Exam(s) Completed: Head: Routine Brain SIGNATURE: RT Daisy(R) PATIENT NAME: Kelly Arteaga DATE: April 19, 2022 TIME: 8:45 AM documented in this encounter [facility] Summary Purpose Family History No Family History Records FoundNo Family History Records FoundNo Family History Records FoundNo Family History Records FoundNo Family History Records Found Advance Directives No Advanced Directives Records FoundNo Advanced Directives Records FoundNo Advanced Directives Records FoundNo Advanced Directives Records FoundNo Advanced Directives Records Found Additional Source Comments INFORMATION SOURCE (unrecogn ized section and content) DATE CREATED AUTHOR AUTHOR'S ORGANIZ ATION 04/05/2020 [facility] [employer] [facility] DATE CREATED AUTHOR AUTHOR'S ORGANIZ ATION 05/29/2021 [facility] DATE CREATED AUTHOR AUTHOR'S ORGANIZ ATION 06/03/2021 [facility] DATE CREATED AUTHOR AUTHOR'S ORGANIZ ATION 04/20/2022 [facility] Source Comments (unrecognize d section and content) In the event this informatio n is protected by the Federal Confidentiality of Alcohol and Drug Abuse Patient Records regulations: The Federal rules restrict any use of the information to criminally investigate or prosecute any alcohol or drug abuse patient.[facility] Reason for Visit (unrecogniz ed section and content) Referral ID Status Reason Start Date Expiration Date Visits Re quested Visits Authorized [id number] Closed 03/22/2022 09/18/2022 1 1 Care Teams (unrecognized sec tion and content) FOR RECORDS PERTAINING TO PATIENTS WHO ARE OR HAVE BEEN ENROLLED IN A CHEMICAL DEPENDENCY/SUBSTANCEABUSE PROGRAM, SOME INFORMATION MAY BE OMITTED. This clinical summary was aggregated from multiple sources. Caution should be exercised in using it in the provision of clinical care. This summary normalizes information from multiple sources, and as a consequence, information in this document may materially change the coding, format and clinical context of patient data. In addition, data may be omitted in some cases. CLINICAL DECISIONS SHOULD BE BASED ON THE PRIMARY CLINICAL RECORDS. [facility]. provides no warranty or guarantee of the accuracy or completeness of information in this document.
[2023-09-18 09:38] LABS: Free T3 2.8 pg/mL (2.18-3.98); T4 Free Direct 1.28 ng/dL (0.76-1.46); Thyroid Stim Hormone (TSH) 3.55 uIU/mL (0.358-3.74)
== END | disposition home or self-care (01) ==
LOC: LAB 07:33
PROVIDERS: PCP Family Medicine; Referring Provider Family Medicine; Visit Provider Family Medicine
DX: E03.9 Hypothyroidism, unspecified (principal)
CPT/HCPCS: 36415; 84439; 84443; 84481

== ENCOUNTER → 2024-06-23 | Outpatient (CLI) | payer OTHER, SELFPAY ==
[2024-06-29 10:50] LABS: HPV Reflexed? NOT INDICATED
== END | disposition home or self-care (01) ==
LOC: LABSPEC 14:03
PROVIDERS: PCP Family Medicine; Referring Provider Obstetrics & Gynecology; Visit Provider Obstetrics & Gynecology
DX: Z12.4 Encounter for screening for malignant neoplasm of cervix (principal)
CPT/HCPCS: 88175; G0145

== ENCOUNTER → 2024-08-01 | Outpatient (CLI) | payer OTHER, SELFPAY ==
--- NOTE | 2024-08-01 07:54 | US_ITS ---
HISTORY: Left wrist ganglion cyst. TECHNIQUE: Routine and color duplex imaging of the left wrist. 22 images. COMPARISON: XR 08/06/2024. FINDINGS: 5 x 9 x 9 mm circumscribed oval cyst with internal echoes medial to the radial artery in the left wrist. US/Ext Non Vasc Limited/Soft Tiss IMPRESSION: 9 mm cyst containing debris. Electronically Signed: Carly Wagner MD at 10:25 EST ,
== END | disposition home or self-care (01) ==
LOC: US 07:48
PROVIDERS: PCP Family Medicine; Referring Provider Surgery Plastic and Reconstructive Surgery; Visit Provider Surgery Plastic and Reconstructive Surgery
DX: M67.432 Ganglion, left wrist (principal)
CPT/HCPCS: 76882

== ENCOUNTER → 2024-08-27 | Outpatient (CLI) | payer OTHER, SELFPAY ==
[2024-08-27 14:58] LABS: Absolute Lymphocyte Count 2.13 X10^3/uL (0.83-4.51); Absolute Neutrophil Count 2.6 X10^3/uL (2.0-7.7); Basophil# 0.05 X10^3/uL; Basophil% 0.9 % (0-1); Eosinophil# 0.07 X10^3/uL; Eosinophils% 1.3 % (0-5); Hematocrit 39.5 % (37-47); Hemoglobin 13.8 g/dL (12.0-15.0); Lymphocyte # 2.13 X10^3/ul (0.83-4.51); Mean Corp Hgb Conc 34.9 g/dL (32-36); Mean Corpuscular Hgb 31.6 pg (27.0-32.0); Mean Corpuscular Volume 90.4 fL (81-99); Mean Platelet Vol. 10.3 fl (6.2-12.0); Monocyte# 0.49 X10^3/uL; Monocyte% 9.2 % (0-10); NRBC Flagged by Analyzer 0 % (0-5); Neutrophil # 2.56 X10^3/uL (2.7-7.7); Platelet Count 183 K/mm3 (150-450); RBC Distribution Width CV 11.7 % (11.6-14.6); RBC Distribution Width SD 38.6 fl (35.1-43.9); Red Blood Count 4.37 M/mm3 (4.2-5.4); White Blood Count 5.3 K/mm3 (4.4-11.0)
[2024-08-27 15:19] LABS: Erythrocyte Sedimentation Rate < 1 mm/hr (0-30)
[2024-08-27 15:33] LABS: ALB/GLOB Ratio 1.3 RATIO (0.9-2.4); AST(SGOT) 17 U/L (15-37); Alanine Aminotransfer ALT/SGPT 27 U/L (13-56); Alkaline Phosphatase 48 U/L (45-117); Anion Gap 3 (5-15); BUN 9 mg/dL (7-18); BUN/Creat Ratio 12.7 RATIO (10-20); CRP < 2.90 mg/L (0.0-3.0); Calcium,Total 9.1 mg/dL (8.5-10.1); Chloride 109 mmol/L (98-107); Creatinine, Serum 0.71 mg/dL (0.55-1.02); EST Glomerular Filtration Rate 107 mL/min (>60); Est Glom Filt Rate - Afr Amer 129 mL/min (>60); Glucose 70 mg/dL (74-106); Potassium 3.7 mmol/L (3.5-5.1); Sodium Level 139 mmol/L (136-145)
== END | disposition home or self-care (01) ==
PROVIDERS: PCP Family Medicine; Referring Provider Nurse Practitioner Family; Visit Provider Nurse Practitioner Family
DX: R10.9 Unspecified abdominal pain (principal); R19.5 Other fecal abnormalities
CPT/HCPCS: 36415; 80053; 85025; 85652; 86140

== ENCOUNTER → 2024-12-08 | Outpatient (CLI) | payer OTHER, SELFPAY ==
[2024-12-09 02:00] LABS: HIV Nonreactive (Nonreactive)
[2024-12-09 05:06] LABS: HEPATITIS B SURFACE AG Negative (Negative); Hep C Antibodies Non Reactive (Non Reactive); Hepatitis A IgM Antibody Negative (Negative); Hepatitis B Core AB IgM Negative (Negative)
== END | disposition home or self-care (01) ==
PROVIDERS: PCP Family Medicine; Referring Provider Family Medicine; Visit Provider Family Medicine
DX: Z77.21 Contact with and (suspected) exposure to potentially hazardous body fluids (principal)
CPT/HCPCS: 36415; 80074; 86703

== ENCOUNTER → 2025-05-21 | Outpatient (CLI) | payer OTHER, SELFPAY | END | disposition home or self-care (01) | PROVIDERS: PCP Family Medicine; Referring Provider Obstetrics & Gynecology; Visit Provider Obstetrics & Gynecology | DX: N89.8 Other specified noninflammatory disorders of vagina (principal); N92.0 Excessive and frequent menstruation with regular cycle | CPT/HCPCS: 36415; 84439; 84443; 87070; 87205 ==